=== PATIENT | male | born 1990 | race Caucasian/White ===

== ENCOUNTER 2018-04-23 17:54 | Emergency (ER) | payer OTHER ==
[~2018-04-23] VITALS: Ht 185.4 cm; Wt 110.4 kg
[2018-04-23 18:55] VITALS: Ht 185.4 cm; Wt 110.4 kg
[2018-04-23] MEDS ORDERED: SOD CHLORIDE 0.9% 1,000 ML IV STA (20:49)
[2018-04-23] MEDS ORDERED: FAMOTIDINE 20 MG INJ IV STA (20:49)
[2018-04-23] MEDS ORDERED: ONDANSETRON 4 MG INJ IV STA (20:49)
[2018-04-23] MEDS ORDERED: ACETAMINOPHEN 325 MG TAB PO ONE (21:00)
[2018-04-23] MEDS ORDERED: ONDA4TAB14 PO (22:53)
[2018-04-23] MEDS ORDERED: ACET500C5 PO (22:53)
[2018-04-23] MEDS ORDERED: BENZ-6 PO (22:53)
[2018-04-23 23:01] VITALS: BP 131/73; PULSE 73; RESP 18
--- NOTE | 2018-04-25 23:27 | ERD ---
ER Documentation Chief Complaint Chief Complaint AP, VOMIT, DIARRHEA X'S 2 WEEKS HPI 27-year-old male patient with no significant past medical history presents to ED complaining of abdominal pain, vomiting, diarrhea that started intimately for the last 2 weeks. Patient also reports that he recently developed a fever. His vomiting and nausea, gets better when he takes warm showers. Reports that he is also been having body aches, cough, rhinorrhea. Reports that he does smoke marijuana every day. Denies any chest pain, shortness of breath, wheezing, dysuria, urgency, frequency. ROS All systems reviewed and are negative except as per history of present illness. Medications Home Meds Active Scripts Acetaminophen* (Tylophen*) 500 Mg Capsule, 1 CAP PO Q6H PRN for PAIN AND OR ELEVATED TEMP, #20 CAP Prov:CLYDE EDWARDS PA-C 04/23/18 Benzonatate* (Tessalon Perle*) 100 Mg Capsule, 100 MG PO Q8H PRN for COUGH, #20 CAP Prov:CLYDE EDWARDS PA-C 04/23/18 Ondansetron (Ondansetron Odt) 4 Mg Tab.rapdis, 4 MG PO Q6H PRN for NAUSEA AND/OR VOMITING, #10 TAB Prov:CLYDE EDWARDS PA-C 04/23/18 Allergies Allergies: Coded Allergies: No Known Allergy (Unverified , 04/23/18) PMhx/Soc Medical and Surgical Hx: pt denies Medical Hx, pt denies Surgical Hx Hx Alcohol Use: Yes (OCCASIONAL) Hx Substance Use: Yes (MARIJUANA DAILY) Hx Tobacco Use: No Smoking Status: Never smoker FmHx Family History: No diabetes, No coronary disease Physical Exam Vitals Vital Signs Date Temp Pulse Resp B/P (MAP) Pulse Ox O2 O2 Flow FiO2 Time Delivery Rate 04/23/18 99.9 73 18 131/73 95 Room Air 23:01 (92) 04/23/18 100.7 21:00 04/23/18 100.7 83 18 165/80 99 18:55 (108) Physical Exam Const: Oep-ohr-xptalmcdn, well-nourished. In no acute distress. Head: Atraumatic, normocephalic Eyes: Normal Conjunctiva without injection. No purulent discharge. ENT: Normal external ear, nose. Moist oropharynx without tonsillar exudates. Non-erythematous pharynx. Uvula midline. No drooling. No trismus. Neck: No cervical midline tenderness. Full range of motion. No meningismus. No cervical lymphadenopathy. No JVD. Resp: Clear to auscultation bilaterally. No wheezing, rhonchi, rales, or crac kles. No accessory muscle use. No retractions. Cardio: Regular rate and rhythm. No murmurs, rubs or gallops. Abd: Soft, non distended. Normal bowel sounds. No palpable masses. No rebound tenderness. No guarding. Negative McBurney's point. Negative psoas sign. Negative obturator sign. : See exam in MDM. Skin: No petechiae or rashes Back: No midline tenderness. No CVA tenderness. Ext: No cyanosis, or edema. Neur: Awake and alert. Normal gait. Normal coordination. Psych: Normal Mood and Affect Result Diagram: 04/23/18 2100 04/23/18 2100 Results 24 hrs Laboratory Tests Test 04/23/18 21:00 White Blood Count 5.2 10^3/ul Red Blood Count 5.24 10^6/ul Hemoglobin 15.3 g/dl Hematocrit 44.4 % Mean Corpuscular Volume 84.7 fl Mean Corpuscular Hemoglobin 29.2 pg Mean Corpuscular Hemoglobin Concent 34.5 g/dl Red Cell Distribution Width 12.9 % Platelet Count 149 10^3/UL Mean Platelet Volume 11.9 fl Immature Granulocytes % 0.600 % Neutrophils % 64.7 % Lymphocytes % 18.9 % Monocytes % 15.6 % Eosinophils % 0.0 % Basophils % 0.2 % Nucleated Red Blood Cells % 0.0 /100WBC Immature Granulocytes # 0.030 10^3/ul Neutrophils # 3.4 10^3/ul Lymphocytes # 1.0 10^3/ul Monocytes # 0.8 10^3/ul Eosinophils # 0.0 10^3/ul Basophils # 0.0 10^3/ul Nucleated Red Blood Cells # 0.0 10^3/ul Urine Color SYLVAIN Urine Clarity CLEAR Urine pH 5.0 Urine Specific Mitchell 1.032 Urine Ketones 2+ mg/dL Urine Nitrite NEGATIVE mg/dL Urine Bilirubin NEGATIVE mg/dL Urine Urobilinogen 1+ mg/dL Urine Leukocyte Esterase NEGATIVE José/ul Urine Hemoglobin NEGATIVE mg/dL Urine Glucose NEGATIVE mg/dL Urine Total Protein NEGATIVE mg/dl Sodium Level 139 mmol/L Potassium Level 3.8 mmol/L Chloride Level 99 mmol/L Carbon Dioxide Level 29 mmol/L Anion Gap 11 Blood Urea Nitrogen 13 mg/dl Creatinine 0.91 mg/dl Est Glomerular Filtrat Rate mL/min > 60 mL/min Glucose Level 114 mg/dl Calcium Level 9.6 mg/dl Total Bilirubin 0.7 mg/dl Direct Bilirubin 0.00 mg/dl Indirect Bilirubin 0.7 mg/dl Aspartate Amino Transf (AST/SGOT) 68 IU/L Alanine Aminotransferase (ALT/SGPT) 88 IU/L Alkaline Phosphatase 60 IU/L Total Protein 8.4 g/dl Albumin 4.8 g/dl Globulin 3.60 g/dl Albumin/Globulin Ratio 1.33 Lipase 35 U/L Monoscreen Negative Current Medications Medications Dose Sig/Sharmila Start Time Status Last (Trade) Ordered Route PRN Stop Time Admin Dose Reason Admin Sodium 1,000 ml @ Q1H STAT 04/23/18 DC 04/23/18 Chloride 1,000 mls/hr IV 20:49 20:59 04/23/18 21:48 Ondansetron 4 mg ONCE STAT 04/23/18 DC 04/23/18 HCl (Zofran IV 20:49 21:00 Inj) 04/23/18 20:54 Famotidine 20 mg ONCE STAT 04/23/18 DC 04/23/18 (Pepcid Iv) IV 20:49 21:00 04/23/18 20:54 650 mg ONCE ONCE 04/23/18 DC 04/23/18 Acetaminophen PO 21:00 21:00 (Tylenol 04/23/18 21:01 Tab) Procedures/MDM 27-year-old male patient with no significant past medical history presents to ED complaining of abdominal pain, vomiting, diarrhea that started 2 weeks ago. Patient has a low-grade fever 100.7. Patient was further worked up with CBC, CMP, lipase, UA, gallbladder ultrasound. Patient's pain and symptoms have improved after treatment with 1 L of normal saline, Tylenol, Zofran 4 mg IV, Famotidine 20 mg IV. CBC: No leukocytosis. No e/o of systemic infection. No e/o anemia. CMP: No e/o severe acidosis, alkalosis, renal failure, diabetic ketoacidosis, liver disease Lipase within normal limits. Urine: No leukocyte esterase, no nitrites, no hematuria. Monospot negative Patient's symptoms are secondary to viral etiology. Low suspicion for testicular torsion, gastritis, GERD, peptic ulcer disease, cholecystitis, choledocholithiasis, cholangitis, pancreatitis, appendicitis, bowel obstruction, ileus, volvulus, nephrolithiasis, pyelonephritis, hepatitis, perforated viscus, diverticulitis, abdominal hernia, acute abdomen, mesenteric ischemia or other emergent conditions. Low suspicion for pneumonia, pneumothorax, pulmonary embolism, atypical CT, influenza, or emergent conditions. Discharge medications: Tylenol, Tessalon Perles, Zofran Follow up with primary care physician in 1-2 days for referral to business information manager. Instructed patient to return to the ED sooner for any worsening symptoms. Patient's questions were answered. Patient understood and agreed with discharge plan. Patient discharged stable. Disclaimer: Inadvertent spelling and grammatical errors are likely due to EHR/dictation software use and do not reflect on the overall quality of patient care. Also, please note that the electronic time recorded on this note does not necessarily reflect the actual time of the patient encounter. Departure Diagnosis: Primary Impression: Vomiting Vomiting type: unspecified Vomiting Intractability: unspecified Nausea presence: unspecified Qualified Codes: R11.10 - Vomiting, unspecified Additional Impressions: Cough Abdominal pain Abdominal location: unspecified location Qualified Codes: R10.9 - Unspecified abdominal pain Condition: Stable Patient Instructions: Understanding Marijuana Abuse, Diet, Vomiting Or Diarrhea [6Yr-Adult], Viral Syndrome (Adult), Vomiting (6Y-Adult) Referrals: [facility] YOU HAVE RECEIVED A MEDICAL SCREENING EXAM AND THE RESULTS INDICATE THAT YOU DO NOT HAVE A CONDITION THAT REQUIRES URGENT TREATMENT IN THE EMERGENCY DEPARTMENT. FURTHER EVALUATION AND TREATMENT OF YOUR CONDITION CAN WAIT UNTIL YOU ARE SEEN IN YOUR DOCTORS OFFICE WITHIN THE NEXT 1-2 DAYS. IT IS YOUR RESPONSIBILITY TO MAKE AN APPOINTMENT FOR FOLOW-UP CARE. IF YOU HAVE A PRIMARY DOCTOR --you should call your primary doctor and schedule an appointment IF YOU DO NOT HAVE A PRIMARY DOCTOR YOU CAN CALL OUR PHYSICIAN REFERRAL HOTLINE AT IF YOU CAN NOT AFFORD TO SEE A PHYSICIAN YOU CAN CHOSE FROM THE FOLLOWING [facility] [address] [facility] [place] [facility] [address] [facility] [address] [facility] [address] [facility] [address] [facility]. [facility] [address] [facility]. [facility] YOU HAVE RECEIVED A MEDICAL SCREENING EXAM AND THE RESULTS INDICATE THAT YOU DO NOT HAVE A CONDITION THAT REQUIRES URGENT TREATMENT IN THE EMERGENCY DEPARTMENT. FURTHER EVALUATION AND TREATMENT OF YOUR CONDITION CAN WAIT UNTIL YOU ARE SEEN IN YOUR DOCTORS OFFICE WITHIN THE NEXT 1-2 DAYS. IT IS YOUR RESPONSIBILITY TO MAKE AN APPOINTMENT FOR FOLOW-UP CARE. IF YOU HAVE A PRIMARY DOCTOR --you should call your primary doctor and schedule and appointment IF YOU DO NOT HAVE A PRIMARY DOCTOR YOU CAN CALL OUR PHYSICIAN REFERRAL HOTLINE AT . IF YOU CAN NOT AFFORD TO SEE A PHYSICIAN YOU CAN CHOSE FROM THE FOLLOWING [facility] INSTITUTIONS: [facility] [address] [place] [address] [facility] [address] [place] [address] [facility] [address] [place] [address] [facility] URGENT CARE/SPECIALTIES Additional Instructions: Call your primary care doctor TOMORROW for an appointment during the next 2-3 days.See the doctor sooner or return here if your condition worsens before your appointment time. CLYDE EDWARDS PA-C Apr 25, 2018 23:05
== END 2018-04-23 23:03 | disposition home or self-care (01) ==
LOC: FTE 17:54
DX: R11.10 Vomiting, unspecified (principal); R05 Cough
CPT/HCPCS: 36415; 76705; 80053; 81003; 83690; 85025; 86308; 96374; 96375; J2405; J7030; Z7502; Z7610